=== PATIENT | male | born 1990 | race Caucasian/White ===

== ENCOUNTER → 2020-01-06 | Outpatient (REF) | payer BC | LOC: M LAB REF 18:05 | PROVIDERS: ATTEND Dermatology | DX: L72.3 Sebaceous cyst (principal) ==

== ENCOUNTER → 2020-01-25 | Outpatient (REF) | payer BC | LOC: M LAB REF 18:00 | PROVIDERS: ATTEND Dermatology | DX: L72.0 Epidermal cyst (principal) ==

== ENCOUNTER → 2021-02-19 | Outpatient (REF) | payer OTHER, BC | LOC: M LAB REF 17:15 | PROVIDERS: ATTEND Dermatology | DX: L72.0 Epidermal cyst (principal) ==

== ENCOUNTER → 2024-10-20 | Outpatient (CLI) | payer OTHER ==
[~2024-10-20] MED LIST: BUSP5TA PO; CEFU50TA PO; CYCL5TAB4 PO; EXCETAB32 PO; GABA-1171 PO; MIRA33506 PO; ONDA-83 PO; OXYC10TA3 PO; OXYC20TA2 PO; OXYC7.5T3 PO; PANT40TA29 PO
== END ==
LOC: M SOG 07:55
PROVIDERS: ATTEND Physician Assistant
DX: S42.022D Displaced fracture of shaft of left clavicle, subsequent encounter for fracture with routine healing (principal)

== ENCOUNTER → 2024-10-25 | Outpatient (CLI) | payer OTHER | LOC: M RAD 12:26 | PROVIDERS: ATTEND Student in an Organized Health Care Education/Training Program | DX: J93.9 Pneumothorax, unspecified (principal); J90 Pleural effusion, not elsewhere classified ==

== ENCOUNTER → 2024-11-17 | Outpatient (CLI) | payer OTHER | LOC: M SOG 07:53 | PROVIDERS: ATTEND Physician Assistant | DX: S42.022D Displaced fracture of shaft of left clavicle, subsequent encounter for fracture with routine healing (principal) ==

== ENCOUNTER → 2024-12-30 | Outpatient (CLI) | payer OTHER | LOC: M SOG 08:05 | PROVIDERS: ATTEND Physician Assistant | DX: S42.022D Displaced fracture of shaft of left clavicle, subsequent encounter for fracture with routine healing (principal) ==